=== PATIENT | male | born 1975 | race Two or more races ===

== ENCOUNTER 2022-01-22 00:33 | Emergency (ER) | payer OTHER ==
[~2022-01-22] VITALS: Ht 188 cm; Wt 117.9 kg
--- NOTE | 2022-01-22 00:55 | NUR ---
TO ER BED 10. BIBRA 839 C/O F/C NOT DRAINING FOR THE PAST 6 HRS. HAD F/C INPLACE FOR 2 WEEKS. CHANGED INTO GOWN. CONNECTED TO MONITOR. AWAITING MD VALLES
--- NOTE | 2022-01-22 01:49 | NUR ---
UROLOGY PAGED FOR CONSULT
--- NOTE | 2022-01-22 01:58 | NUR ---
[facility] AT BEDSIDE
[2022-01-22 02:09] LABS: BASOPHILS % (AUTO) 0.7 % (0.0-2.0); EOSINOPHILS % (AUTO) 2.8 % (0.0-6.0); HEMATOCRIT 37 % (39-51); LYMPHOCYTES # (AUTO) 1.4 K/uL (0.8-4.8); LYMPHOCYTES % (AUTO) 20.6 % (20.0-44.0); MEAN CORPUSCULAR HGB CONC 33 g/dl (31.0-36.0); MEAN CORPUSCULAR VOLUME 87 fL (80-96); MONOCYTES # (AUTO) 0.5 K/uL (0.1-1.30); MONOCYTES % (AUTO) 7.5 % (2.0-12.0); NEUTROPHILS # (AUTO) 4.7 K/uL (1.8-8.9); NEUTROPHILS % (AUTO) 68.4 % (43.0-81.0); PLATELET COUNT (AUTO) 196 K/uL (150-450); RED BLOOD CELL COUNT(AUTO) 4.18 MIL/uL (4.5-6.0); WHITE BLOOD COUNT (AUTO) 6.9 K/uL (4.3-11.0)
--- NOTE | 2022-01-22 02:28 | NUR ---
PT'S FAMILY BROUGHT OVER DISCAHRGE PAPER WORK FROM PT'S [facility]ST [facility]PITALIZ[facility] AND NOTED THAT USAMA CRAWFORD WAS THE D. WHO INSERTED THE F/C. CALLED THE OFFICE BUT OPTION TO SPEAK WITH FUEL TRUCK DRIVER MD IS NOT WORKING.
[2022-01-22 02:34] LABS: CALCIUM, SERUM 9.4 mg/dL (8.5-10.1); CREATININE 0.6 mg/dL (0.6-1.3); POTASSIUM 4.1 mmol/L (3.5-5.1)
--- NOTE | 2022-01-22 02:40 | NUR ---
.CALLED THE OFFICE OF DR. ISMAEL MD WHO INSERTED THE PT'S [facility]AS[facility]Z BUT UNABLE TO REACH. OPTION ON THE PHONE TO REACH CLINICAL RESEARCH DIRECTOR MD WAS NOT WORKING
--- NOTE | 2022-01-22 03:09 | NUR ---
NIGHT MANAGER UROLOGIST CALLED AGAIN
--- NOTE | 2022-01-22 03:15 | NUR ---
REACHED OUT TO [facility] ER AND SPOKE WITH JOHN, CHARGE NURSE TO ASKED IF SHE WOULD BE ABLE TO ASSIST IN LOCATING THE UROLOGIST ON PT'S RECORD. ACCORDING TO HER SHE HAVE NOT DEALT WITH DR. GUEVARA ON ER.
[2022-01-22 04:36] LABS: BILIRUBIN,URINE NEGATIVE (NEGATIVE); COLOR,URINE YELLOW (YELLOW); LEUKOCYTE ESTERASE ,URINE NEGATIVE (NEGATIVE); NITRITE, URINE NEGATIVE (NEGATIVE); PROTEIN,URINE NEGATIVE (NEGATIVE); UGLUCOSE NEGATIVE (NEGATIVE); UROBILINOGEN,URINE 0.2 EU/dL (0.2)
--- NOTE | 2022-01-22 05:05 | NUR ---
BLADDER SCAN : 150 ML . MADE AWARE
[2022-01-22] MEDS ORDERED: oxyCODONE/APAP (5/325 MG) 1 UDTAB TABLET ONE (05:27)
--- NOTE | 2022-01-22 05:28 | NUR ---
[facility] ETA 30 MINUTES.
[2022-01-22] MEDS ORDERED: oxyCODONE/APAP (5/325 MG) 1 UDTAB TABLET PO ONE (05:30)
--- NOTE | 2022-01-22 05:32 | NUR ---
Patient discharged to home in stable condition. Written and verbal after care instructions given. Patient verbalizes understanding of instruction.
--- NOTE | 2022-01-22 06:19 | NUR ---
[facility] AT BEDSIDE FOR PT TRANSPORT BACK TO HIS RESIDENCE. PT'S AT BESIDE WELL. REPORT GIVEN TO EMT
[2022-01-22 06:28] VITALS: BP 124/70
== END 2022-01-22 06:29 | disposition home or self-care (01) ==
LOC: ER 00:36
DX: T83.091A Other mechanical complication of indwelling urethral catheter, initial encounter (principal)
CPT/HCPCS: 36415; 51700; 80048; 81003; 85025; 87086; 99284; J7060